=== PATIENT | female | born 1985 | race Caucasian/White ===

== ENCOUNTER 2017-09-03 12:21 | Emergency (ER) | payer SELFPAY ==
[2017-09-03] MEDS ORDERED: Dexamethasone 4 mg/ml Vial ONE (12:48)
[2017-09-03] MEDS ORDERED: Famotidine 20 MG TAB ONE (12:48)
[2017-09-03] MEDS ORDERED: diphenhydrAMINE 25 MG CAP ONE (13:04)
== END 2017-09-03 14:23 | disposition home or self-care (01) ==
LOC: ERS 12:21
DX: T63.461A Toxic effect of venom of wasps, accidental (unintentional), initial encounter (principal); M79.89 Other specified soft tissue disorders; E03.9 Hypothyroidism, unspecified; Z79.899 Other long term (current) drug therapy
CPT/HCPCS: 99283; J1100